=== PATIENT | male | born 1940 | race Caucasian/White ===

== ENCOUNTER 2018-12-06 17:14 | Inpatient (IN) | payer OTHER, MEDICAID ==
[~2018-12-06] VITALS: Ht 172.7 cm; Wt 81.7 kg
[2018-12-06 18:22] LABS: BASOPHILS % 0.1 % (0.0-2.0); EOSINOPHILS % 0.6 % (0.0-5.0); HEMATOCRIT. 41.5 % (42.0-52.0); HEMOGLOBIN. 14.2 g/dL (14.0-18.0); LYMPHOCYTES % 7.3 % (20.0-50.0); MEAN CORPUSCULAR VOLUME 96.6 fL (80.0-94.0); MEAN PLATELET VOLUME 7.8 fl (7.4-10.4); PLATELET 309 x1000/uL (130-400); RED CELL DISTRIBUTION WIDTH 14.4 % (11.6-14.6)
[2018-12-06 18:27] LABS: CHLORIDE 92 mEq/L (98-107)
[2018-12-06] MEDS ORDERED: ENOXAPARIN 100MG/ML SYR SUBCUT ONE (19:00)
[2018-12-06] MEDS ORDERED: ASPIRIN 81MG TABLET PO ONE (19:00)
[2018-12-06] MEDS ORDERED: FUROSEMIDE 20MG TABLET PO ONE (19:00)
[2018-12-06 22:30] VITALS: BP 136/74
[2018-12-06] MEDS ORDERED: ATOR20TA65 MT (22:35)
[2018-12-06] MEDS ORDERED: HYDR-459 PO (22:37)
[2018-12-06] MEDS ORDERED: DULO30CA52 PO (22:40)
[2018-12-06] MEDS ORDERED: GABA-533 PO (22:42)
[2018-12-06] MEDS ORDERED: ACYC800T5 MT (22:43)
[2018-12-06] MEDS ORDERED: DORZ10DR12 LEFTEYE (22:50)
[2018-12-06] MEDS ORDERED: TC1U15 TP (22:50)
[2018-12-06] MEDS ORDERED: CARB15DR OP (22:50)
[2018-12-07] VITALS (8 sets, daily range): BP systolic 95–146; BP diastolic 58–87
[2018-12-07] MEDS ORDERED: METOPROLOL TARTRATE 50MG TABLET PO NR (01:15)
[2018-12-07] MEDS ORDERED: CLONIDINE 0.1MG TABLET PO PRN (02:15)
[2018-12-07] MEDS ORDERED: PIPERACILLIN/TAZ 3.375G PREMIX 50 ML IV SCH (02:15)
[2018-12-07] MEDS ORDERED: ONDANSETRON HCL 4MG/2ML INJ IV PRN (02:15)
[2018-12-07] MEDS ORDERED: ATORVASTATIN CALCIUM 20MG TABLET PO SCH (02:15)
[2018-12-07] MEDS ORDERED: MAGNESIUM/ALUMINUM HYDROXIDE/SIMETHICONE 30ML UDC PO PRN (02:15)
[2018-12-07] MEDS: ATORVASTATIN CALCIUM 20MG TABLET PO SCH ×2 (03:31→21:14)
[2018-12-07] MEDS: PIPERACILLIN/TAZOBACTAM 2.25 G in DEXTROSE 5% WATER 50 ML IV SCH ×3 (04:32→17:36)
[2018-12-07] MEDS: SODIUM CHLORIDE 0.9% 1,000 ML IV SCH ×2 (04:32→21:14)
[2018-12-07] MEDS: POLYVINYL ALCOHOL OPHTH DROPS 15ML BOTHEYE SCH ×3 (06:34→17:34)
[2018-12-07 07:24] LABS: BASOPHILS % 0.2 % (0.0-2.0); EOSINOPHILS % 0.4 % (0.0-5.0); HEMATOCRIT. 39.1 % (42.0-52.0); HEMOGLOBIN. 13.3 g/dL (14.0-18.0); LYMPHOCYTES % 7.5 % (20.0-50.0); MEAN CORPUSCULAR HEMOGLOBIN 32.9 pg (28.0-32.0); MEAN CORPUSCULAR VOLUME 96.5 fL (80.0-94.0); MEAN PLATELET VOLUME 8.3 fl (7.4-10.4); MONOCYTES % 10.1 % (2.0-8.0); NEUTROPHILS % 81.8 % (40.0-76.0); PLATELET 309 x1000/uL (130-400); RED BLOOD CELL COUNT 4.05 mill/uL (4.7-6.1); RED CELL DISTRIBUTION WIDTH 14.4 % (11.6-14.6)
[2018-12-07 07:33] LABS: CHLORIDE 95 mEq/L (98-107)
[2018-12-07 07:44] LABS: LDL CHOLESTEROL 51 mg/dL (5-100)
[2018-12-07 07:45] LABS: CREATINE KINASE 92 IU/L (39-308)
[2018-12-07 07:46] LABS: HDL CHOLESTEROL 18 mg/dL (40-59)
[2018-12-07] MEDS ORDERED: SODIUM BICARBONATE 8.4% 1 MEQ/ML 50ML SYR IV SCH (08:30)
[2018-12-07] MEDS: METOPROLOL TARTRATE 50MG TABLET PO SCH ×2 (09:00→21:14)
[2018-12-07 09:01] LABS: INR 1.1; PROTHROMBIN TIME 11.4 sec (9.6-11.0)
[2018-12-07] MEDS: ENOXAPARIN 80MG/0.8ML SYR SUBCUT SCH ×2 (09:43→21:14)
[2018-12-07] MEDS: TRIAMCINOLONE ACETONIDE 0.1 % OINT 15GM TOP SCH ×2 (09:44→17:34)
[2018-12-07] MEDS: GABAPENTIN 400MG CAPSULE PO SCH ×2 (09:44→17:34)
[2018-12-07] MEDS: HYDROXYZINE 25MG TABLET PO SCH (09:44)
[2018-12-07] MEDS: DULOXETINE HCL 30MG DR CAPSULE PO SCH ×2 (09:44→17:34)
[2018-12-07] MEDS: DORZOLAM/TIMOLOL 2.23/0.68% OPHTH DROPS 10ML LEFTEYE SCH ×2 (09:47→17:34)
[2018-12-07] MEDS ORDERED: IPRATROPIUM/ALBUTEROL 0.5-3(2.5)MG/3ML NEB HHN PRN (13:30)
[2018-12-07] MEDS: ASPIRIN 81MG EC TABLET PO SCH (13:47)
[2018-12-07] MEDS ORDERED: VERAPAMIL HCL 2.5 MG/1 ML 2ML VIAL IV PRN (20:30)
[2018-12-08] VITALS (14 sets, daily range): BP systolic 119–139; BP diastolic 59–97
[2018-12-08] MEDS: POLYVINYL ALCOHOL OPHTH DROPS 15ML BOTHEYE SCH ×5 (00:18→23:14)
[2018-12-08] MEDS: PIPERACILLIN/TAZOBACTAM 2.25 G in DEXTROSE 5% WATER 50 ML IV SCH ×5 (00:18→23:15)
[2018-12-08] MEDS ORDERED: [UNRECOGNIZED DRUG - CODE] RC (00:29)
[2018-12-08 07:25] LABS: BASOPHILS % 0.4 % (0.0-2.0); EOSINOPHILS % 0.7 % (0.0-5.0); HEMATOCRIT. 36.4 % (42.0-52.0); HEMOGLOBIN. 12.3 g/dL (14.0-18.0); LYMPHOCYTES % 10.5 % (20.0-50.0); MEAN CORPUSCULAR HEMOGLOBIN 33.1 pg (28.0-32.0); MEAN CORPUSCULAR VOLUME 97.5 fL (80.0-94.0); MEAN PLATELET VOLUME 8.4 fl (7.4-10.4); MONOCYTES % 11.2 % (2.0-8.0); NEUTROPHILS % 77.2 % (40.0-76.0); PLATELET 285 x1000/uL (130-400); RED BLOOD CELL COUNT 3.73 mill/uL (4.7-6.1); RED CELL DISTRIBUTION WIDTH 14.7 % (11.6-14.6)
[2018-12-08 08:05] LABS: T4 FREE 1.44 ng/dL (0.76-1.46)
[2018-12-08] MEDS: TRIAMCINOLONE ACETONIDE 0.1 % OINT 15GM TOP SCH ×2 (09:27→17:54)
[2018-12-08] MEDS: DORZOLAM/TIMOLOL 2.23/0.68% OPHTH DROPS 10ML LEFTEYE SCH ×2 (09:27→17:59)
[2018-12-08] MEDS: ASPIRIN 81MG EC TABLET PO SCH (09:28)
[2018-12-08] MEDS: HYDROXYZINE 25MG TABLET PO SCH (09:28)
[2018-12-08] MEDS: GABAPENTIN 400MG CAPSULE PO SCH ×2 (09:28→17:54)
[2018-12-08] MEDS: DULOXETINE HCL 30MG DR CAPSULE PO SCH ×2 (09:28→17:54)
[2018-12-08] MEDS: ENOXAPARIN 80MG/0.8ML SYR SUBCUT SCH ×2 (09:28→21:00)
[2018-12-08] MEDS: METOPROLOL TARTRATE 50MG TABLET PO SCH ×2 (09:28→20:59)
[2018-12-08] MEDS: SODIUM CHLORIDE 0.9% 1,000 ML IV SCH (12:44)
[2018-12-08 15:09] LABS: BG BASE EXCESS -3.6 mmol/L (-2.0-2.0); BG CARBOXYHEMOGLOBIN 0.4 % (0.5-1.5); BG DEOXYHEMOGLOBIN 6.9 % (0.0-5.0); BG FRACTION INSPIRED OXYGEN 21; BG HCO3 ACT 19.7 mmol/L (22.0-26.0); BG METHEMOGLOBIN 0.3 % (0.0-1.5); BG OXYGEN SATURATION 93.1 % (92.0-98.5); BG OXYHEMOGLOBIN 92.4 % (94.0-97.0); BG PCO2 30.6 mmHg (35.0-45.0); BG PH 7.426 (7.350-7.450); BG PO2 68.4 mmHg (75.0-100.0); BG SAMPLE SITE RIGHT RADIAL; BG TOTAL HEMOGLOBIN 13.7 g/dL (12.0-18.0); BG VENT MODE ROOM AIR
[2018-12-08] MEDS ORDERED: LORAZEPAM 2MG/ML CPJ IV PRN (15:30)
[2018-12-08] MEDS ORDERED: HYDROCODONE/ACETAMINOPHEN 5/325MG TABLET PO PRN (15:30)
[2018-12-08] MEDS ORDERED: HYDRALAZINE 20MG/ML VIAL IV PRN (15:30)
[2018-12-08] MEDS ORDERED: VANCOMYCIN 1250MG in DEXTROSE 5% WATER 250ML IV SCH (18:00)
[2018-12-08 18:52] LABS: CLARITY URINE CLOUDY (CLEAR); COLOR URINE DARK YELLOW (YELLOW); KETONES URINE NEGATIVE (NEGATIVE); LEUKOCYTE ESTERASE URINE 1+ (NEGATIVE); NITRITE URINE NEGATIVE (NEGATIVE); OCCULT BLOOD URINE 3+ (NEGATIVE); PROTEIN URINE 3+ (NEGATIVE); SPECIFIC GRAVITY URINE 1.018 (1.005-1.030)
[2018-12-08 19:23] LABS: SODIUM URINE RANDOM < 5 mEq/L
[2018-12-08] MEDS: ATORVASTATIN CALCIUM 20MG TABLET PO SCH (21:09)
[2018-12-08] MEDS: IPRATROPIUM/ALBUTEROL 0.5-3(2.5)MG/3ML NEB HHN SCH ×2 (21:19→22:05)
[2018-12-08] MEDS: DIPHENHYDRAMINE 50MG/ML VIAL IV PRN (23:30)
[2018-12-09] VITALS (14 sets, daily range): BP systolic 132–157; BP diastolic 72–94
[2018-12-09] MEDS: IPRATROPIUM/ALBUTEROL 0.5-3(2.5)MG/3ML NEB HHN SCH ×4 (02:30→22:05)
[2018-12-09] MEDS: POLYVINYL ALCOHOL OPHTH DROPS 15ML BOTHEYE SCH ×3 (06:27→17:17)
[2018-12-09] MEDS: PIPERACILLIN/TAZOBACTAM 2.25 G in DEXTROSE 5% WATER 50 ML IV SCH ×3 (06:27→19:20)
[2018-12-09] MEDS: SODIUM CHLORIDE 0.9% 1,000 ML IV SCH ×2 (06:28→17:17)
[2018-12-09] MEDS: METOPROLOL TARTRATE 50MG TABLET PO SCH ×2 (10:06→21:27)
[2018-12-09] MEDS: GABAPENTIN 400MG CAPSULE PO SCH ×2 (10:06→16:41)
[2018-12-09] MEDS: DORZOLAM/TIMOLOL 2.23/0.68% OPHTH DROPS 10ML LEFTEYE SCH ×2 (10:06→16:42)
[2018-12-09] MEDS: DULOXETINE HCL 30MG DR CAPSULE PO SCH ×2 (10:06→16:41)
[2018-12-09] MEDS: HYDROXYZINE 25MG TABLET PO SCH (10:06)
[2018-12-09] MEDS: TRIAMCINOLONE ACETONIDE 0.1 % OINT 15GM TOP SCH ×2 (10:06→16:42)
[2018-12-09] MEDS: ASPIRIN 81MG EC TABLET PO SCH (10:06)
[2018-12-09] MEDS: ENOXAPARIN 80MG/0.8ML SYR SUBCUT SCH (10:07)
[2018-12-09 11:42] LABS: BASOPHILS % 0.3 % (0.0-2.0); EOSINOPHILS % 0.3 % (0.0-5.0); HEMATOCRIT. 37.9 % (42.0-52.0); LYMPHOCYTES % 8.2 % (20.0-50.0); MEAN CORPUSCULAR HEMOGLOBIN 32.9 pg (28.0-32.0); MEAN PLATELET VOLUME 8.2 fl (7.4-10.4); MONOCYTES % 10.9 % (2.0-8.0); NEUTROPHILS % 80.3 % (40.0-76.0); PLATELET 316 x1000/uL (130-400); RED BLOOD CELL COUNT 3.94 mill/uL (4.7-6.1); RED CELL DISTRIBUTION WIDTH 14.8 % (11.6-14.6)
[2018-12-09 12:33] LABS: PHOSPHORUS 5.6 mg/dL (2.5-4.9)
[2018-12-09] MEDS ORDERED: VANCOMYCIN 1 G PREMIX 200 ML IV SCH ×3 (14:00→18:00)
[2018-12-09] MEDS: ATORVASTATIN CALCIUM 20MG TABLET PO SCH (21:27)
[2018-12-09] MEDS: DIPHENHYDRAMINE 50MG/ML VIAL IV PRN (23:35)
[2018-12-09] MEDS: DEMECLOCYCLINE HCL 300MG TABLET PO SCH (23:35)
[2018-12-10] VITALS: BP 150/86
[2018-12-10] MEDS: PIPERACILLIN/TAZOBACTAM 2.25 G in DEXTROSE 5% WATER 50 ML IV SCH ×4 (01:05→18:16)
[2018-12-10] MEDS: POLYVINYL ALCOHOL OPHTH DROPS 15ML BOTHEYE SCH ×4 (01:06→18:15)
[2018-12-10] MEDS: IPRATROPIUM/ALBUTEROL 0.5-3(2.5)MG/3ML NEB HHN SCH ×4 (02:40→20:36)
[2018-12-10 04:00] VITALS: BP 156/87
[2018-12-10 08:00] VITALS: BP 127/66
[2018-12-10] MEDS: TRIAMCINOLONE ACETONIDE 0.1 % OINT 15GM TOP SCH ×2 (08:34→18:16)
[2018-12-10] MEDS: DORZOLAM/TIMOLOL 2.23/0.68% OPHTH DROPS 10ML LEFTEYE SCH ×2 (08:34→18:15)
[2018-12-10] MEDS: ASPIRIN 81MG EC TABLET PO SCH (08:35)
[2018-12-10] MEDS: METOPROLOL TARTRATE 50MG TABLET PO SCH ×2 (08:35→20:58)
[2018-12-10] MEDS: DULOXETINE HCL 30MG DR CAPSULE PO SCH ×2 (08:35→17:00)
[2018-12-10] MEDS: HYDROXYZINE 25MG TABLET PO SCH (08:35)
[2018-12-10] MEDS: DEMECLOCYCLINE HCL 300MG TABLET PO SCH ×2 (08:35→20:57)
[2018-12-10] MEDS: GABAPENTIN 400MG CAPSULE PO SCH ×2 (08:35→17:00)
[2018-12-10] MEDS ORDERED: ENOXAPARIN 40MG/0.4ML SYR SUBCUT SCH (09:00)
[2018-12-10 10:40] LABS: BASOPHILS % 0.5 % (0.0-2.0); EOSINOPHILS % 0.9 % (0.0-5.0); HEMATOCRIT. 35.7 % (42.0-52.0); HEMOGLOBIN. 12.1 g/dL (14.0-18.0); LYMPHOCYTES % 8.4 % (20.0-50.0); MEAN CORPUSCULAR HEMOGLOBIN 32.8 pg (28.0-32.0); MEAN CORPUSCULAR VOLUME 96.8 fL (80.0-94.0); MEAN PLATELET VOLUME 7.9 fl (7.4-10.4); MONOCYTES % 12.5 % (2.0-8.0); NEUTROPHILS % 77.7 % (40.0-76.0); PLATELET 299 x1000/uL (130-400); RED BLOOD CELL COUNT 3.69 mill/uL (4.7-6.1); RED CELL DISTRIBUTION WIDTH 14.7 % (11.6-14.6)
[2018-12-10 11:15] LABS: PHOSPHORUS 5.5 mg/dL (2.5-4.9)
[2018-12-10] MEDS: SODIUM CHLORIDE 0.9% 1,000 ML IV SCH (11:34)
[2018-12-10] MEDS ORDERED: CEFEPIME 1,000 MG in DEXTROSE 5% WATER 50 ML IV SCH (12:30)
[2018-12-10] MEDS ORDERED: PROMETHAZINE/DEXTROMETHORPHAN 6.25-15MG/5ML BOTTLE 120ML PO PRN (12:45)
[2018-12-10] MEDS ORDERED: LIDOCAINE HCL 1% 20ML VIAL (Pyxis) INJ ONE (13:01)
[2018-12-10] MEDS ORDERED: DILTIAZEM HCL 5MG/ML 5ML VIAL IV ONE (16:45)
[2018-12-10] MEDS: GUAIFENESIN-DM 200MG-20MG/10ML UDC PO PRN (18:17)
[2018-12-10] MEDS ORDERED: DILTIAZEM HCL 5MG/ML 5ML VIAL IV SCH (19:00)
[2018-12-10] MEDS: VANCOMYCIN 750 MG PREMIX 150 ML IV SCH (19:18)
[2018-12-10 20:00] VITALS: BP 116/86
[2018-12-10] MEDS: ATORVASTATIN CALCIUM 20MG TABLET PO SCH (20:58)
[2018-12-10] MEDS ORDERED: NON FORMULARY PATIENT HOME MED XX SCH (22:15)
[2018-12-10 22:32] VITALS: BP 131/79
[2018-12-10] MEDS ORDERED: DILTIAZEM 125MG in DEXTROSE 5% WATER 125ML IV SCH (23:00)
[2018-12-10 23:22] VITALS: BP 110/77
[2018-12-11] VITALS (16 sets, daily range): BP systolic 104–155; BP diastolic 64–103
[2018-12-11] MEDS: IPRATROPIUM/ALBUTEROL 0.5-3(2.5)MG/3ML NEB HHN SCH ×4 (01:07→19:05)
[2018-12-11] MEDS: PIPERACILLIN/TAZOBACTAM 2.25 G in DEXTROSE 5% WATER 50 ML IV SCH ×3 (01:12→11:50)
[2018-12-11] MEDS: POLYVINYL ALCOHOL OPHTH DROPS 15ML BOTHEYE SCH ×4 (01:13→18:51)
[2018-12-11] MEDS: SODIUM CHLORIDE 0.9% 1,000 ML IV SCH (06:40)
[2018-12-11 07:22] LABS: BASOPHILS % 0.5 % (0.0-2.0); EOSINOPHILS % 1.7 % (0.0-5.0); HEMOGLOBIN. 11.5 g/dL (14.0-18.0); LYMPHOCYTES % 14.1 % (20.0-50.0); MEAN CORPUSCULAR HEMOGLOBIN 32.9 pg (28.0-32.0); MEAN CORPUSCULAR VOLUME 97.5 fL (80.0-94.0); MEAN PLATELET VOLUME 8.5 fl (7.4-10.4); MONOCYTES % 13.7 % (2.0-8.0); PLATELET 307 x1000/uL (130-400); RED BLOOD CELL COUNT 3.49 mill/uL (4.7-6.1); RED CELL DISTRIBUTION WIDTH 14.7 % (11.6-14.6)
[2018-12-11 08:14] LABS: PHOSPHORUS 5.9 mg/dL (2.5-4.9)
[2018-12-11] MEDS ORDERED: ENOXAPARIN 30MG/0.3ML SYR SUBCUT SCH (09:00)
[2018-12-11] MEDS: GABAPENTIN 400MG CAPSULE PO SCH ×2 (09:58→18:51)
[2018-12-11] MEDS: DEMECLOCYCLINE HCL 300MG TABLET PO SCH ×2 (09:58→21:31)
[2018-12-11] MEDS: HYDROXYZINE 25MG TABLET PO SCH (09:58)
[2018-12-11] MEDS: DULOXETINE HCL 30MG DR CAPSULE PO SCH ×2 (09:58→18:51)
[2018-12-11] MEDS: DORZOLAM/TIMOLOL 2.23/0.68% OPHTH DROPS 10ML LEFTEYE SCH ×2 (09:59→18:51)
[2018-12-11] MEDS: METOPROLOL TARTRATE 50MG TABLET PO SCH ×2 (10:05→21:32)
[2018-12-11] MEDS: ASPIRIN 81MG EC TABLET PO SCH (10:05)
[2018-12-11] MEDS: TRIAMCINOLONE ACETONIDE 0.1 % OINT 15GM TOP SCH ×2 (10:06→18:52)
[2018-12-11] MEDS: DILTIAZEM HCL 30MG TABLET PO SCH ×3 (11:00→18:59)
[2018-12-11] MEDS: AMIODARONE HCL 200 MG TABLET PO SCH ×2 (11:50→21:31)
[2018-12-11] MEDS ORDERED: LACTULOSE 20G/30ML UDC PO PRN (12:00)
[2018-12-11] MEDS ORDERED: CEFEPIME 1,000 MG in DEXTROSE 5% WATER 50 ML IV SCH (15:00)
[2018-12-11] MEDS: VANCOMYCIN 750 MG PREMIX 150 ML IV SCH (16:43)
[2018-12-11] MEDS: APIXABAN 2.5 MG TABLET PO SCH (18:51)
[2018-12-11] MEDS: ATORVASTATIN CALCIUM 20MG TABLET PO SCH (21:31)
[2018-12-11] MEDS: GUAIFENESIN-DM 200MG-20MG/10ML UDC PO PRN (21:31)
[2018-12-12] VITALS (14 sets, daily range): BP systolic 126–151; BP diastolic 63–99
[2018-12-12] MEDS: SODIUM CHLORIDE 0.9% 1,000 ML IV SCH (00:56)
[2018-12-12] MEDS: POLYVINYL ALCOHOL OPHTH DROPS 15ML BOTHEYE SCH ×4 (01:06→18:24)
[2018-12-12] MEDS: IPRATROPIUM/ALBUTEROL 0.5-3(2.5)MG/3ML NEB HHN SCH ×4 (01:36→20:11)
[2018-12-12] MEDS: DILTIAZEM HCL 30MG TABLET PO SCH ×3 (03:33→18:24)
[2018-12-12] MEDS: VANCOMYCIN 750 MG PREMIX 150 ML IV SCH (05:50)
[2018-12-12 06:37] LABS: BASOPHILS % 0.5 % (0.0-2.0); EOSINOPHILS % 2.5 % (0.0-5.0); HEMATOCRIT. 36.7 % (42.0-52.0); HEMOGLOBIN. 12.6 g/dL (14.0-18.0); LYMPHOCYTES % 8.8 % (20.0-50.0); MEAN CORPUSCULAR HEMOGLOBIN 33.4 pg (28.0-32.0); MEAN CORPUSCULAR VOLUME 97.1 fL (80.0-94.0); MEAN PLATELET VOLUME 8.4 fl (7.4-10.4); MONOCYTES % 11.5 % (2.0-8.0); NEUTROPHILS % 76.7 % (40.0-76.0); PLATELET 330 x1000/uL (130-400); RED BLOOD CELL COUNT 3.78 mill/uL (4.7-6.1); RED CELL DISTRIBUTION WIDTH 14.5 % (11.6-14.6)
[2018-12-12] MEDS: DULOXETINE HCL 30MG DR CAPSULE PO SCH ×2 (08:48→17:00)
[2018-12-12] MEDS: DEMECLOCYCLINE HCL 300MG TABLET PO SCH ×2 (08:49→20:18)
[2018-12-12] MEDS: ASPIRIN 81MG EC TABLET PO SCH (08:49)
[2018-12-12] MEDS: GABAPENTIN 400MG CAPSULE PO SCH ×2 (08:49→18:24)
[2018-12-12] MEDS: AMIODARONE HCL 200 MG TABLET PO SCH (08:49)
[2018-12-12] MEDS: METOPROLOL TARTRATE 50MG TABLET PO SCH ×2 (08:49→20:21)
[2018-12-12] MEDS: HYDROXYZINE 25MG TABLET PO SCH (08:49)
[2018-12-12] MEDS: APIXABAN 2.5 MG TABLET PO SCH ×2 (08:49→18:24)
[2018-12-12] MEDS: DORZOLAM/TIMOLOL 2.23/0.68% OPHTH DROPS 10ML LEFTEYE SCH ×2 (08:49→17:00)
[2018-12-12] MEDS: TRIAMCINOLONE ACETONIDE 0.1 % OINT 15GM TOP SCH ×2 (08:51→17:00)
[2018-12-12 09:17] LABS: PHOSPHORUS 5.6 mg/dL (2.5-4.9)
[2018-12-12] MEDS ORDERED: CEFEPIME 1,000 MG in DEXTROSE 5% WATER 50 ML IV SCH (16:00)
[2018-12-12] MEDS: ATORVASTATIN CALCIUM 20MG TABLET PO SCH (20:18)
[2018-12-12] MEDS ORDERED: AMIODARONE HCL 200 MG TABLET PO SCH (21:00)
[2018-12-13] MEDS ORDERED: VANCOMYCIN 1 G PREMIX 200 ML IV SCH (06:00)
== END 2018-12-12 21:56 | DRG 871 ==
LOC: ER 18:24 → 5EST 18:59 → EDBEDREQSVC 19:03 → EDBEDREQ 19:03 → ENRESERV 19:50 → 8WST 12-09 18:41 → 3WST 12-10 22:20
PROVIDERS: ADMIT Internal Medicine; ATTEND Internal Medicine
PROC: 02HV33Z Insertion of Infusion Device into Superior Vena Cava, Percutaneous Approach (ICD-10-PCS; principal; 2018-12-10)
PROC: B548ZZA Ultrasonography of Superior Vena Cava, Guidance (ICD-10-PCS; 2018-12-10)
PROC: B5181ZA Fluoroscopy of Superior Vena Cava using Low Osmolar Contrast, Guidance (ICD-10-PCS; 2018-12-10)
DX: A41.9 Sepsis, unspecified organism (principal); E43 Unspecified severe protein-calorie malnutrition; N17.0 Acute kidney failure with tubular necrosis; J18.1 Lobar pneumonia, unspecified organism; J96.90 Respiratory failure, unspecified, unspecified whether with hypoxia or hypercapnia; I21.3 ST elevation (STEMI) myocardial infarction of unspecified site; I50.23 Acute on chronic systolic (congestive) heart failure; E87.1 Hypo-osmolality and hyponatremia; I13.0 Hypertensive heart and chronic kidney disease with heart failure and stage 1 through stage 4 chronic kidney disease, or unspecified chronic kidney disease; I47.1 Supraventricular tachycardia; I48.92 Unspecified atrial flutter; N39.0 Urinary tract infection, site not specified; R17 Unspecified jaundice; N17.9 Acute kidney failure, unspecified; E87.8 Other disorders of electrolyte and fluid balance, not elsewhere classified; E78.5 Hyperlipidemia, unspecified; B02.9 Zoster without complications; D64.9 Anemia, unspecified; E11.22 Type 2 diabetes mellitus with diabetic chronic kidney disease; E11.65 Type 2 diabetes mellitus with hyperglycemia; I45.10 Unspecified right bundle-branch block; N18.9 Chronic kidney disease, unspecified; R62.7 Adult failure to thrive; Z79.01 Long term (current) use of anticoagulants; Z79.899 Other long term (current) drug therapy; Z82.49 Family history of ischemic heart disease and other diseases of the circulatory system; Z68.27 Body mass index [BMI] 27.0-27.9, adult
CPT/HCPCS: 36415; 36573; 36600; 71045; 71250; 74018; 74176; 76770; 76937; 80048; 80061; 80202; 81003; 82375; 82533; 82550; 82805; 83036; 83615; 83735; 83880; 83935; 84100; 84153; 84300; 84439; 84443; 84484; 87804; 93005; 93306; 93970; 94640; 96372; 97162; 99291; C1725; J0692; J1200; J1650; J2405; J2543; J3370; J3490; J7030; J7060; J7620; G0103